=== PATIENT | male | born 1980 | race Caucasian/White ===

== ENCOUNTER 2023-11-02 09:43 | Emergency (ER) | payer OTHER, SELFPAY ==
[2023-11-02 09:43] VITALS: BMI 25.8
[2023-11-02 09:52] VITALS: BP 181/86
--- NOTE | 2023-11-02 10:42 | ED.GENMED ---
History of Present Illness
General
Chief Complaint: Chest Pain
Time Seen by Provider: 11/02/23 10:09
Travel History
Have you had any contact with someone who has COVID-19?: No
Do you have any symptoms of coronavirus? Fever > 100 degrees, chills, cough, shortness of breath, sore throat, loss of taste or smell, muscle aches, or headache?: No
History of Present Illness
History of Present Illness:
43-year-old male presents emergency department for evaluation of left-sided chest discomfort that began last night. Pain is pleuritic and worse midline on the left side. Got worse this morning and thus went to urgent care, was referred here due to
a 'abnormal EKG'. Pain is since subsided. He has no symptoms currently. No recent fever, chills, sweats, nausea, vomiting, or diarrhea. Non-smoker. No family history of precocious coronary artery disease to his knowledge
Review of Systems
Review of Systems
Allergies reviewed?: Yes
All Other Systems: ROS reviewed and negative except as documented in HPI and ROS
Phy Exam
Physical Exam
Physical Exam:
GEN: Well appearing, NAD, WDWN
HEENT: Oral mucosa moist, no scleral icterus
Cardiac: Regular rate and rhythm, no murmurs
Lung: No respiratory distress, no tachypnea, lungs clear to auscultation bilaterally, no reproducible chest wall tenderness
MSK: No gross deformity or injuries
Skin: Good color, no pallor or jaundice, no rashes
Neuro: AO x3, moves all extremities freely
Psych: Calm, cooperative
Scores
Heart Score for Chest Pain Patients
STEMI patient?: No
History: Slightly or Non-Suspicious
ECG: Normal
Age: </= 45 years
Risk Factors: 1 or 2 Risk Factors
Troponin: </= Normal Limit
Heart Score for Chest Pain Patients: 1
Heart Score Risk: 2.5% MACE over next 6 weeks
Course
Orders/Labs/Results
Orders:
Orders
11/02/23 09:54
Electrocardiogram (*1) Urgent
Reason for Study: Chest Pain
EKG- Treatment ONCE
11/02/23 10:46
Complete Blood Count/With Diff Urgent
Comprehensive Metabolic Panel Urgent
Troponin I Urgent
Abnormal Lab Results
11/02/23
10:46
RBC 4.63 L 10^6/uL
(4.70-6.10)
Absolute Monos (auto) 0.8 H 10^3/uL
(0.1-0.6)
Monocytes % 13.1 H %
(1.7-9.3)
11/02/23 10:46
11/02/23 10:46
Vital Signs
Initial and Last Documented VS:
Initial Vital Signs
Temp Pulse Resp BP Pulse Ox
98.0 F 65 16 181/86 98
11/02/23 09:52 11/02/23 09:52 11/02/23 09:52 11/02/23 09:52 11/02/23 09:52
Last Documented Vital Signs
Temp Pulse Resp BP Pulse Ox
98.3 F 64 16 122/89 98
11/02/23 12:05 11/02/23 12:05 11/02/23 12:05 11/02/23 12:05 11/02/23 12:05
MDM/Problems Addressed
MDM/Problems Addressed:
Patient's pain is subsided. Workup including chest x-ray unremarkable. Likely musculoskeletal given positional and pleuritic nature, meets PE rule out criteria.
Comment
Comment:
EKG independently interpreted by me shows normal sinus rhythm at a rate of 61 with T wave inversions in lead III, nonspecific, no overt ST changes concerning for ischemia
*Critical Care Note
Total Time (30-74mins, 75-104mins- exclusive of procedures): Not Applicable
ED Attending Note
-
Portions of this chart may have been created with voice recognition software.� Occasional wrong word or��sound alike� substitutions may have occurred due to the inherent limitations of voice recognition software.
Discharge Plan
Departure
Patient Disposition: Home (Routine Discharge)
Date of Disposition: 11/02/23
Time of Disposition: 11:50
Patient with high blood pressure during this ER visit?: No
Discharge Problem:
Atypical chest pain
Instructions: Chest Pain That Is Not Caused by the Heart (DC)
Prescriptions:
No Action
pantoprazole 40 mg Tablet,Delayed Release (Dr/Ec)
40 mg PO DAILY
rosuvastatin [Crestor] 10 mg Tablet
10 mg PO DAILY
minoxidil
1 dose topical DAILY
Patient Comments:
6% solution
Referrals:
Eder Gutierrez DO [Family Provider] -
Interventions
Interventions:
*Risk Screen - Suicide Last Done: 11/02/23 10:14
*General Assessment Last Done: 11/02/23 10:14
*Neglect/Abuse Screening Last Done: 11/02/23 10:14
ED- Fall Risk Assessment Last Done: 11/02/23 12:05
*ED COVID-19 Vaccine History Last Done: 11/02/23 09:52
*Nursing Disposition Last Done: 11/02/23 12:05
ED- Cardiac Assessment Last Done: 11/02/23 10:14
Discharge Date and Time
Discharge Date/Time: 11/02/23 12:05
[2023-11-02 10:57] LABS: % Basophils 0.3 % (0-2); % Eosinophils 2.1 % (0-6); % Immature Granulocytes 0.3 % (0-0.5); % Lymphocytes 41.5 % (20.5-51.1); % Monocytes 13.1 % (1.7-9.3); % Neutrophils 42.7 % (42.2-75.2); Absolute Eosinophils 0.1 10^3/uL (0-0.7); Absolute Lymphocytes 2.5 10^3/uL (1.2-3.4); Absolute Monocytes 0.8 10^3/uL (0.1-0.6); Absolute Neutrophils 2.6 10^3/uL (1.4-6.5); Hematocrit 40.2 % (39.0-52.0); Hemoglobin 14.1 g/dL (13.0-18.0); Mean Corp Hgb Conc. 35.1 g/dL (33.0-37.0); Mean Corpuscular Hgb 30.5 pg (27.0-31.0); Mean Corpuscular Volume 86.8 fL (80.0-94.0); Mean Platelet Volume 10.4 fL (7.4-10.4); Nucleated Red Blood Cells % 0 % (-); Platelet Count 186 10^3/uL (130-400); Red Blood Cell Count 4.63 10^6/uL (4.70-6.10); Red Cell Dist. Width 12.9 % (11.5-14.5); White Blood Cell Count 6.1 10^3/uL (4.8-10.8)
[2023-11-02 11:12] LABS: ALT (SGPT) 24 U/L (0-50); AST (SGOT) 28 U/L (17-59); Albumin 4.6 g/dl (3.5-5.0); Alkaline Phosphatase 53 U/L (38-126); Blood Urea Nitrogen 18 mg/dl (9-20); Calcium 9.4 mg/dl (8.4-10.2); Carbon Dioxide 29 mmol/L (22-30); Chloride 102 mmol/L (98-107); Estimated Creatinine Clearance > 125 ml/min; Glucose 90 mg/dl (70-99); Potassium 4.7 mmol/L (3.5-5.1); Sodium 137 mmol/L (135-145); Total Bilirubin 0.7 mg/dl (0.2-1.3); Total Protein 7.5 g/dl (6.3-8.2); eGFR > 60.00
[2023-11-02 11:23] LABS: Troponin I < 0.012 ng/ml
[2023-11-02 12:05] VITALS: BP 122/89
== END 2023-11-02 12:05 | disposition home or self-care (01) ==
LOC: EMR 09:43
PROVIDERS: Physician Assistant; EMERGENCY PHYSICIAN Emergency Medicine; FAMILY PHYSICIAN Internal Medicine
DX: R07.89 Other chest pain (principal); R94.31 Abnormal electrocardiogram [ECG] [EKG]
CPT/HCPCS: 99284; 80053; 84484; 85025; 93005

== ENCOUNTER → 2024-10-02 13:29 | Outpatient (REF) | payer OTHER, SELFPAY | LOC: RAD 13:29 | PROVIDERS: ATTENDING PHYSICIAN Specialist; FAMILY PHYSICIAN Internal Medicine | DX: R22.1 Localized swelling, mass and lump, neck (principal) | CPT/HCPCS: 70491; Q9967 ==